=== PATIENT | female | born 1980 | race Two or more races ===

== ENCOUNTER 2021-06-30 11:12 | Emergency (ER) | payer OTHER ==
[~2021-06-30] VITALS: Ht 165.1 cm; Wt 104.3 kg
[2021-06-30] MEDS ORDERED: TENORMIN25 MG PO (11:49)
[2021-06-30] MEDS ORDERED: BUDESONIDE0.5 MG/2 M IH (15:57)
[2021-06-30] MEDS ORDERED: ALBUTEROL1.25 MG/3 IH (15:57)
[2021-06-30] MEDS ORDERED: SINGULAIR10 MG PO (15:57)
[2021-06-30] MEDS ORDERED: FLONASE ALLERG9.9 ML NASAL (15:57)
[2021-06-30] MEDS ORDERED: PROMETH-CODEIN 65 ML PO (15:57)
[2021-06-30] MEDS ORDERED: TESSALON PERLE100 M1 PO (15:57)
== END 2021-06-30 16:51 | disposition home or self-care (01) ==
LOC: ER 11:12
DX: J98.01 Acute bronchospasm (principal); R05.9 Cough, unspecified; R06.02 Shortness of breath; I10 Essential (primary) hypertension; Z03.818 Encounter for observation for suspected exposure to other biological agents ruled out